=== PATIENT | female | born 1990 | race African-American/Black ===

== ENCOUNTER 2017-05-08 19:34 | Emergency (ER) | payer MEDICAID ==
[~2017-05-08] VITALS: Ht 165.1 cm; Wt 127.0 kg
[~2017-05-08 19:34] MED LIST: ALBUTEROL INHALER
[2017-05-08] MEDS ORDERED: ALBUTEROL (0.083%) 2.5MG/3ML NEB HHN STA (21:38)
[2017-05-08] MEDS ORDERED: IPRATROPIUM BROMIDE (0.02%) 0.5MG/2.5ML NEB HHN STA (21:38)
[2017-05-08 23:13] VITALS: BP 119/58
== END 2017-05-08 23:16 | disposition home or self-care (01) ==
LOC: ER 20:00
DX: J45.909 Unspecified asthma, uncomplicated (principal); R03.0 Elevated blood-pressure reading, without diagnosis of hypertension
CPT/HCPCS: 94640; 99283; J7611